=== PATIENT | male | born 1955 | race Caucasian/White ===

== ENCOUNTER → 2018-04-07 | Outpatient (CLI) | payer MEDICARE, BC ==
[~2018-04-07] MED LIST: ALPRAZOLAM PO; ANTIFUNGAL CREA TP; ASPIRIN EC81 M1; BACTRIM DS TAB1 EACH; BACTRIM DS TAB1 EACH PO; CARBAMAZEPINE200 M5 PO; CIPROFLOXACIN250 M2 PO; CRANBERRY400 MG PO; CYMBALTA30 MG PO; DARVOCET-N 1001 EACH PO; FISH OIL 1,0001 EAC5; FLAGYL500 MG PO; GEODON80 MG PO; HALCION0.25 MG PO; HYDROCODON-ACE1 EACH; IRON325; LAMICTAL XR200 MG PO; MACROBID 100 M100 M1; MELATONIN3 MG PO; METHENAMINE1 GM PO; MOBIC15 MG PO; MULTIVITAMINS1 EAC7 PO; NORCO 5-325 TA1 EACH PO; NORVASC 5 MG TAB5 MG PO; OXYBUTYNIN 5 MG5 M1 PO; PEPCID AC20 M1; PERCOCET 5-3251 EACH PO; PRILOSEC 10MG C10 M1 PO; PRILOSEC 10MG C10 MG PO; PRINIVIL10 MG; SEROQUEL XR 30300 M1 PO; TEGRETOL XR200 MG PO; XANAX 0.5 MG0.5 M1 PO; ZANAFLEX; [UNRECOGNIZED DRUG - OTHER]; [UNRECOGNIZED DRUG - OTHER] PO
== END ==
LOC: M.ULTRA 11:30
DX: N21.0 Calculus in bladder (principal); N31.9 Neuromuscular dysfunction of bladder, unspecified; I10 Essential (primary) hypertension

== ENCOUNTER 2019-01-29 22:02 | Emergency (ER) | payer MEDICARE, BC ==
[~2019-01-29] VITALS: Ht 167.6 cm; Wt 77.1 kg
[2019-01-29 22:26] LABS: ABSOLUTE EOSINOPHILS 0.1 thou/uL (0.0-0.7); ABSOLUTE LYMPHOCYTES 1.3 thou/uL (0.8-5.3); ABSOLUTE MONOCYTES 0.5 thou/uL (0.0-1.2); ABSOLUTE NEUTROPHILS 7.3 thou/uL (1.6-8.1); BASOPHILS 0.4 %; EOSINOPHILS 0.9 %; HEMATOCRIT 39.7 % (42.0-52.0); HEMOGLOBIN 13.7 gm/dL (14.0-18.0); LYMPHOCYTES 13.7 %; MCH 30.5 pg (26.0-34.0); MCHC 34.4 g/dL (28.0-37.0); MCV 88.6 fL (80.0-100.0); MONOCYTES 5.7 %; MPV 6.5 fl. (7.2-11.1); NUCLEATED RBCS 0 /100WBC; PLATELET COUNT* 255 thou/uL (150-400); POLYS 79.3 %; RBC 4.48 mil/uL (4.50-6.00); RDW-CV 13.5 % (10.5-14.5); WBC 9.2 thou/uL (4.0-11.0)
[2019-01-29 22:34] LABS: ANION GAP 8 mmol/L (7-16); BUN 14 mg/dL (7-18); CALCIUM 9.2 mg/dL (8.5-10.1); CHLORIDE 89 mmol/L (98-107); CO2 27 mmol/L (21-32); CREATININE 0.6 mg/dL (0.6-1.3); GLUCOSE 112 mg/dL (70-99); POTASSIUM 3.5 mmol/L (3.5-5.1); SODIUM 124 mmol/L (136-145)
[2019-01-29 22:39] LABS: INR 1.1; PROTIME 11.1 Seconds (9.20-11.50)
[2019-01-29 22:45] LABS: ALBUMIN 4.1 g/dL (3.4-5.0); ALKALINE PHOSPHATASE 118 U/L (46-116); LIPASE 47 U/L (73-393); NT-PRO BRAIN NAT PEPTIDE 78 pg/mL (<300); SGOT 22 U/L (15-37); SGPT 34 U/L (30-65); TOTAL BILIRUBIN 0.5 mg/dL (<0.1-1.0); TOTAL PROTEIN 7.9 g/dL (6.4-8.2); TROPONIN-I LEVEL <0.06 ng/mL (<0.06)
[2019-01-30 01:18] LABS: URINE BILIRUBIN NEGATIVE (Negative); URINE BLOOD NEGATIVE (Negative); URINE CLARITY CLEAR; URINE COLOR STRAW; URINE GLUCOSE-RANDOM NEGATIVE (Negative); URINE KETONES NEGATIVE (Negative); URINE LEUKOCYTES-REFLEX NEGATIVE (Negative); URINE NITRITE-REFLEX NEGATIVE (Negative); URINE PROTEIN NEGATIVE (Negative); URINE SPECIFIC GRAVITY <= 1.005 (1.005-1.030); URINE UROBILINOGEN 0.2 E.U./dl (0.2-1.0)
[2019-01-30] MEDS ORDERED: COMPAZINE10 MG PO (01:39)
[2019-01-30] MEDS ORDERED: CARAFATE 1 GM TA1 GM PO (01:39)
[2019-01-30 01:51] VITALS: BP 149/89
--- NOTE | 2019-02-01 13:25 | EKG ---
[place] [address] ELECTROCARDIOGRAM REPORT Name: DARIAN MORA Room: [facility]#: [id number] Admission: 01/29/19 Attend Phys: Discharge: 01/30/19 Date of : 59 Report #: [id number] THIS REPORT FOR: //name// [facility] [place] ED Test Date: 2019-01-29 Test Time: 22:15:43 Pat Name: DARIAN MORA Department: Room: Gender: M Rn Discharge: : 1955 Requested By: Samira Ward Order Number: [id number] MD: Phill Burgess Measurements Intervals Nancy Rate: 63 P: 36 OR: 229 QRS: 61 QRSD: 103 T: 49 QT: 412 QTc: 422 Interpretive Statements Sinus rhythm Prolonged OR interval Abnormal R-wave progression, early transition Compared to ECG 01/10/2016 18:02:54 First degree AV block now present Electronically Signed On 02-01-2019 13:25:35 CDT by Phill Burgess [email or web address] <ELECTRONICALLY SIGNED> By: Phill Burgess MD, [facility] 02/01/19 1325 2215 14 Phill Burgess MD, [facility] /EPI
== END 2019-01-30 01:52 | disposition home or self-care (01) ==
LOC: M.ERS 22:02
PROVIDERS: Emergency Medicine
DX: R11.2 Nausea with vomiting, unspecified (principal); F31.9 Bipolar disorder, unspecified; I10 Essential (primary) hypertension

== ENCOUNTER → 2019-03-24 | Outpatient (CLI) | payer OTHER ==
[~2019-03-24] MED LIST changes: +AMBIEN 5 MG TABL5 M1 PO; +CARAFATE 1 GM TA1 GM PO; +COMPAZINE10 MG PO; +ZANTAC 150MG T150 MG PO
== END ==
LOC: M.CT 12:53
DX: Z13.6 Encounter for screening for cardiovascular disorders (principal); I25.10 Atherosclerotic heart disease of native coronary artery without angina pectoris

== ENCOUNTER → 2019-03-24 | Outpatient (CLI) | payer MEDICARE, BC | LOC: M.RAD 12:44 | DX: K21.9 Gastro-esophageal reflux disease without esophagitis (principal); R13.10 Dysphagia, unspecified; R11.0 Nausea ==

== ENCOUNTER 2019-03-25 12:47 | Emergency (ER) | payer MEDICARE, BC ==
[~2019-03-25] VITALS: Ht 167.6 cm; Wt 81.7 kg
[~2019-03-25 12:47] MED LIST changes: -AMBIEN 5 MG TABL5 M1 PO; -ZANTAC 150MG T150 MG PO
[2019-03-25] MEDS ORDERED: ZANTAC 150MG T150 MG PO (13:02)
[2019-03-25] MEDS ORDERED: AMBIEN 5 MG TABL5 M1 PO (13:02)
[2019-03-25 14:36] VITALS: BP 143/77
== END 2019-03-25 14:40 | disposition home or self-care (01) ==
LOC: M.ERS 12:47
DX: M79.642 Pain in left hand (principal); M79.89 Other specified soft tissue disorders; I10 Essential (primary) hypertension; F31.9 Bipolar disorder, unspecified

== ENCOUNTER → 2019-04-02 | Outpatient (CLI) | payer MEDICARE, BC ==
[~2019-04-02] MED LIST changes: +AMBIEN 5 MG TABL5 M1 PO; +ZANTAC 150MG T150 MG PO
--- NOTE | 2019-04-02 16:52 | CARDNUC ---
[place] [address] CARDIAC NUCLEAR IMAGING REPORT Name: DARIAN MORA Room: [facility]#: [id number] Admission: 04/02/19 Attend Phys: Dallas Pope, Discharge: Date of : 59 Date of Service: 04/02/19 1651 Report #: [id number] THIS REPORT FOR: //name// APPROVED REPORT Study performed: 04/02/2019 11:43:04 Exam: Nuclear Stress Test Indication: Chest pain Patient Location: Out-Patient Stress Tech: Roxanna Singh Stress Nurse: Joselin Moon RN Ht: 5 ft 6 in Wt: 181 lbs BSA: 1.92 m2 BMI: 29.21 Medical History Medical History: paraplegic, hypertension Medications: no cardiac meds Allergies: nkda Cardiac Risk Factors: age, hypertension Previous Cardiac Procedures: none Exercise History: Indeterminate Stress Test Details Stress Test: Pharmacologic stress testing performed using 0.4 mg of regadenoson per 5 mL given IV over 10 seconds. HR Resting HR: 63 bpm Max Heart Rate (APMHR): 159 bpm Max HR Achieved: 90 bpm Target HR (85% APMHR): 135 bpm % of APMHR: 56 Recovery HR: 95 bpm BP Resting BP: 166/67 mmHg Max BP: 169/84 mmHg ECG Resting ECG: Sinus Rhythm Stress ECG: Sinus Rhythm ST Change: None Arrhythmia: None Recovery ECG: Sinus Rhythm Recovery ST Change: [place] [address] CARDIAC NUCLEAR IMAGING REPORT Name: MORGANDARIAN VASQUEZ Room: [facility]#: [id number] Admission: 04/02/19 Attend Phys: Dallas Pope, Discharge: Date of : 59 Date of Service: 04/02/19 1651 Report #: [id number] Recovery Arrhythmia: None Clinical Reason for Termination: Completed protocol Exercise duration: 0 min sec Exercise capacity: 1 METs The patient tolerated Lexiscan infusion without significant symptoms. Nurse Comments pt paraplegic Stress ECG Conclusion The baseline 12-lead EKG shows sinus rhythm without significant ST segment abnormality. EKGs obtained during and post Lexiscan infusion show sinus rhythm with no significant ST or T wave changes when compared baseline. There were no stress-induced arrhythmias. NM EXAM: Myocardial Perfusion REST/STRESS Imaging Protocol: Rest Tc-99m/Stress Tc-99m 1 day Resting Data Rest SPECT myocardial perfusion imaging was performed in supine position 30 minutes following the intravenous injection of 11.5 mCi of Tc-99m Sestamibi. Time of rest injection: 10:10 The images were gated to evaluate regional wall motion and calculate left ventricular ejection fraction. Administration Route: IV Administration Site: Right AC Pharmacologic Stress Pharmacologic stress test was performed by injecting Regadenoson 0.4 mg IV push followed by the intravenous injection of 29.5 mCi of Tc-99m Sestamibi. Time of stress injection: 11:45 Administration Route: IV Administration Site: Right AC Heart Rate at time of stress injection: 90 bpm. Gated Stress SPECT was performed 40 minutes after stress injection. The images were gated to evaluate regional wall motion and calculate left ventricular ejection fraction. Study Quality Study: [place] [address] CARDIAC NUCLEAR IMAGING REPORT Name: MORGANDARIAN PEDRO Room: [facility]#: [id number] Admission: 04/02/19 Attend Phys: Dallas Pope, Discharge: Date of : 59 Date of Service: 04/02/19 1651 Report #: [id number] Artifact: No artifact Study Data At rest, the left ventricular ejection fraction was 70%.. Post stress, the left ventricular ejection was 70%.. TID = 1.02. Perfusion Normal left ventricular perfusion. Wall Motion Normal left ventricular wall motion. Nuclear Conclusion ECG Findings: negative for ischemia Clinical Findings: negative for ischemia Nuclear Findings: negative for ischemia Exercise Capacity: not assessed Left Ventricular Function: normal Risk Study: low Myocardial perfusion images show no defect to suggest infarct or ischemia. Left ventricular systolic function appears normal on gated studies. This is a low risk study. <Conclusion> The baseline 12-lead EKG shows sinus rhythm without significant ST segment abnormality. EKGs obtained during and post Lexiscan infusion show sinus rhythm with no significant ST or T wave changes when compared baseline. There were no stress-induced arrhythmias. <ELECTRONICALLY SIGNED> By: Dallas Pope MD, FACC 04/02/191650 50 50 Dallas Pope MD, FACC /INF
== END ==
LOC: M.NUC 03-10 11:11 → M.CRD 09:00 → M.NUC 09:53
DX: R07.9 Chest pain, unspecified (principal); I10 Essential (primary) hypertension; K30 Functional dyspepsia; R68.84 Jaw pain

== ENCOUNTER → 2019-05-03 | Outpatient (CLI) | payer MEDICARE, BC | LOC: M.NUC 04-16 15:53 | DX: K21.9 Gastro-esophageal reflux disease without esophagitis (principal); R13.10 Dysphagia, unspecified; R11.0 Nausea ==

== ENCOUNTER → 2019-06-24 | Outpatient (CLI) | payer MEDICARE, BC ==
[2019-06-24 11:57] LABS: URINE BILIRUBIN NEGATIVE (Negative); URINE BLOOD NEGATIVE (Negative); URINE CLARITY CLEAR; URINE COLOR YELLOW; URINE GLUCOSE-RANDOM NEGATIVE (Negative); URINE KETONES NEGATIVE (Negative); URINE LEUKOCYTES-REFLEX NEGATIVE (Negative); URINE NITRITE-REFLEX NEGATIVE (Negative); URINE PROTEIN NEGATIVE (Negative); URINE UROBILINOGEN 0.2 E.U./dl (0.2-1.0)
[2019-06-24 12:01] LABS: CALCIUM 8.8 mg/dL (8.5-10.1); CREATININE 0.8 mg/dL (0.6-1.3); POTASSIUM 4.1 mmol/L (3.5-5.1)
== END ==
LOC: M.LAB 11:24
PROVIDERS: Internal Medicine Cardiovascular Disease
DX: R82.998 Other abnormal findings in urine (principal)

== ENCOUNTER → 2019-07-08 | Outpatient (CLI) | payer MEDICARE, BC | LOC: M.MRI 16:14 | DX: M25.532 Pain in left wrist (principal) ==

== ENCOUNTER → 2019-07-26 | Outpatient (CLI) | payer MEDICARE, BC | LOC: M.MRI 14:23 | DX: M67.431 Ganglion, right wrist (principal); M65.88 Other synovitis and tenosynovitis, other site ==

== ENCOUNTER → 2020-02-17 | Outpatient (CLI) | payer MEDICARE, BC ==
[2020-02-17 11:20] LABS: ABSOLUTE EOSINOPHILS 0.4 thou/uL (0.0-0.7); ABSOLUTE LYMPHOCYTES 1.8 thou/uL (0.8-5.3); ABSOLUTE MONOCYTES 0.4 thou/uL (0.0-1.2); BASOPHILS 0.5 %; EOSINOPHILS 7.6 %; HEMATOCRIT 37.6 % (42.0-52.0); HEMOGLOBIN 12.9 gm/dL (14.0-18.0); LYMPHOCYTES 32.1 %; MCH 31.4 pg (26.0-34.0); MCHC 34.3 g/dL (28.0-37.0); MCV 91.5 fL (80.0-100.0); MONOCYTES 7.8 %; MPV 7.1 fl. (7.2-11.1); NUCLEATED RBCS 0 /100WBC; PLATELET COUNT* 254 thou/uL (150-400); RBC 4.11 mil/uL (4.50-6.00); RDW-CV 13.2 % (10.5-14.5); WBC 5.7 thou/uL (4.0-11.0)
[2020-02-17 11:31] LABS: ALBUMIN 3.7 g/dL (3.4-5.0); CALCIUM 8.6 mg/dL (8.5-10.1); CREATININE 0.9 mg/dL (0.6-1.3); POTASSIUM 4.2 mmol/L (3.5-5.1); TOTAL BILIRUBIN 0.3 mg/dL (<0.1-1.0); TOTAL PROTEIN 7.4 g/dL (6.4-8.2)
[2020-02-17 12:14] LABS: ESR (SEDRATE) 7 mm/hr (0-20)
== END ==
LOC: M.LAB 10:46 → M.CT 11:30
PROVIDERS: ATTEND Internal Medicine Gastroenterology
DX: K59.09 Other constipation (principal); R10.32 Left lower quadrant pain; K76.89 Other specified diseases of liver; K42.0 Umbilical hernia with obstruction, without gangrene

== ENCOUNTER → 2020-03-08 | Outpatient (CLI) | payer MEDICARE, BC ==
[2020-03-08 12:05] LABS: ALBUMIN 3.8 g/dL (3.4-5.0); ALKALINE PHOSPHATASE 113 U/L (46-116); CHOLESTEROL 140 mg/dL (<200); DIRECT BILIRUBIN 0.1 mg/dL (<0.1-0.3); HDL CHOLESTEROL 46 mg/dL (>40); LDL CHOLESTEROL 80 mg/dL (<100); SGOT 20 U/L (15-37); SGPT 35 U/L (30-65); TOTAL BILIRUBIN 0.4 mg/dL (<0.1-1.0); TOTAL PROTEIN 7.1 g/dL (6.4-8.2); TRIGLYCERIDE 73 mg/dL (<150); VLDL 15 mg/dL (<40)
[2020-03-08 12:06] LABS: SERUM ASSESSMENT Clear
== END ==
LOC: M.LAB 11:34
PROVIDERS: ATTEND Internal Medicine Cardiovascular Disease
DX: I25.10 Atherosclerotic heart disease of native coronary artery without angina pectoris (principal); E78.00 Pure hypercholesterolemia, unspecified

== ENCOUNTER → 2020-04-18 | Outpatient (CLI) | payer MEDICARE, BC | LOC: M.WC 12:47 | PROVIDERS: ATTEND Emergency Medicine Undersea and Hyperbaric Medicine | DX: L03.311 Cellulitis of abdominal wall (principal); L01.00 Impetigo, unspecified; G82.21 Paraplegia, complete; I10 Essential (primary) hypertension; I25.10 Atherosclerotic heart disease of native coronary artery without angina pectoris; I87.2 Venous insufficiency (chronic) (peripheral); M19.90 Unspecified osteoarthritis, unspecified site; F31.9 Bipolar disorder, unspecified; F41.9 Anxiety disorder, unspecified; Z79.82 Long term (current) use of aspirin ==

== ENCOUNTER → 2020-04-21 | Outpatient (CLI) | payer MEDICARE, BC | LOC: M.WC 03:46 | PROVIDERS: ATTEND Emergency Medicine Undersea and Hyperbaric Medicine | DX: L03.311 Cellulitis of abdominal wall (principal); L01.00 Impetigo, unspecified; I87.2 Venous insufficiency (chronic) (peripheral); G82.21 Paraplegia, complete; M19.90 Unspecified osteoarthritis, unspecified site; I10 Essential (primary) hypertension; I25.10 Atherosclerotic heart disease of native coronary artery without angina pectoris; F31.89 Other bipolar disorder; F41.9 Anxiety disorder, unspecified; Z79.82 Long term (current) use of aspirin ==

== ENCOUNTER → 2020-04-25 | Outpatient (CLI) | payer MEDICARE, BC | LOC: M.WC 04:01 | PROVIDERS: ATTEND Emergency Medicine Undersea and Hyperbaric Medicine | DX: L03.311 Cellulitis of abdominal wall (principal); L01.00 Impetigo, unspecified; G82.21 Paraplegia, complete; I87.2 Venous insufficiency (chronic) (peripheral); I25.10 Atherosclerotic heart disease of native coronary artery without angina pectoris; I10 Essential (primary) hypertension; M19.90 Unspecified osteoarthritis, unspecified site; F31.9 Bipolar disorder, unspecified; F41.9 Anxiety disorder, unspecified ==

== ENCOUNTER → 2020-05-02 | Outpatient (CLI) | payer MEDICARE, BC | LOC: M.WC 04:11 | PROVIDERS: ATTEND Emergency Medicine Undersea and Hyperbaric Medicine | DX: L03.311 Cellulitis of abdominal wall (principal); L01.00 Impetigo, unspecified; G82.21 Paraplegia, complete; I10 Essential (primary) hypertension; I87.2 Venous insufficiency (chronic) (peripheral); I25.10 Atherosclerotic heart disease of native coronary artery without angina pectoris; M19.90 Unspecified osteoarthritis, unspecified site; F41.9 Anxiety disorder, unspecified; F31.9 Bipolar disorder, unspecified ==

== ENCOUNTER → 2020-05-09 | Outpatient (CLI) | payer MEDICARE, BC | LOC: M.WC 04:17 | PROVIDERS: ATTEND Family Medicine | DX: T21.22XD Burn of second degree of abdominal wall, subsequent encounter (principal); T31.0 Burns involving less than 10% of body surface; L03.311 Cellulitis of abdominal wall; L01.00 Impetigo, unspecified; G82.21 Paraplegia, complete; I10 Essential (primary) hypertension; I25.10 Atherosclerotic heart disease of native coronary artery without angina pectoris; I87.2 Venous insufficiency (chronic) (peripheral); M19.90 Unspecified osteoarthritis, unspecified site; F31.9 Bipolar disorder, unspecified; F41.9 Anxiety disorder, unspecified; X08.8XXD Exposure to other specified smoke, fire and flames, subsequent encounter ==

== ENCOUNTER → 2020-05-30 | Outpatient (CLI) | payer MEDICARE, BC | LOC: M.WC 05:39 | PROVIDERS: ATTEND Emergency Medicine Undersea and Hyperbaric Medicine | DX: L03.311 Cellulitis of abdominal wall (principal); T21.22XD Burn of second degree of abdominal wall, subsequent encounter; T31.0 Burns involving less than 10% of body surface; L01.00 Impetigo, unspecified; G82.21 Paraplegia, complete; I10 Essential (primary) hypertension; I25.10 Atherosclerotic heart disease of native coronary artery without angina pectoris; I87.2 Venous insufficiency (chronic) (peripheral); M19.90 Unspecified osteoarthritis, unspecified site; F31.9 Bipolar disorder, unspecified; F41.9 Anxiety disorder, unspecified; X08.8XXD Exposure to other specified smoke, fire and flames, subsequent encounter ==

== ENCOUNTER → 2021-01-26 | Outpatient (CLI) | payer MEDICARE, BC ==
[2021-01-26 12:18] LABS: ALBUMIN 3.9 g/dL (3.4-5.0); ALKALINE PHOSPHATASE 125 U/L (46-116); ANION GAP 4 mmol/L (7-16); BUN 19 mg/dL (7-18); CALCIUM 8.8 mg/dL (8.5-10.1); CHLORIDE 101 mmol/L (98-107); CHOLESTEROL 161 mg/dL (<200); CK-MB MASS 1.5 ng/mL (<0.5-3.6); CO2 29 mmol/L (21-32); CREATININE 0.9 mg/dL (0.6-1.3); DIRECT BILIRUBIN 0.1 mg/dL (<0.1-0.3); GLUCOSE 104 mg/dL (70-99); HDL CHOLESTEROL 46 mg/dL (>40); LDL CHOLESTEROL 103 mg/dL (<100); POTASSIUM 4.8 mmol/L (3.5-5.1); SGOT 15 U/L (15-37); SGPT 22 U/L (30-65); SODIUM 134 mmol/L (136-145); TC:HDL 3.5 Ratio (Not establshd); TOTAL BILIRUBIN 0.1 mg/dL (<0.1-1.0); TOTAL PROTEIN 7.3 g/dL (6.4-8.2); TRIGLYCERIDE 63 mg/dL (<150); VLDL 13 mg/dL (<40)
[2021-01-26 12:21] LABS: SERUM ASSESSMENT Clear
== END ==
LOC: M.LAB 11:31
PROVIDERS: ATTEND Internal Medicine Cardiovascular Disease
DX: I10 Essential (primary) hypertension (principal); I25.10 Atherosclerotic heart disease of native coronary artery without angina pectoris; E78.00 Pure hypercholesterolemia, unspecified

== ENCOUNTER → 2021-06-12 | Outpatient (CLI) | payer MEDICARE, BC | LOC: M.MRI 06-06 15:59 → M.ULTRA 10:40 → M.MRI 11:30 | PROVIDERS: ATTEND Family Medicine | DX: S53.22XA Traumatic rupture of left radial collateral ligament, initial encounter (principal); M19.032 Primary osteoarthritis, left wrist; R22.0 Localized swelling, mass and lump, head; M92.212 Osteochondrosis (juvenile) of carpal lunate [Kienbock], left hand; X58.XXXA Exposure to other specified factors, initial encounter; Y93.89 Activity, other specified; Y92.89 Other specified places as the place of occurrence of the external cause; Y99.8 Other external cause status ==

== ENCOUNTER → 2021-07-31 | Outpatient (CLI) | payer MEDICARE, BC ==
[2021-07-31 13:20] LABS: ALKALINE PHOSPHATASE 113 U/L (46-116); CHOLESTEROL 126 mg/dL (<200); DIRECT BILIRUBIN 0.1 mg/dL (<0.1-0.3); HDL CHOLESTEROL 51 mg/dL (>40); LDL CHOLESTEROL 69 mg/dL (<100); SERUM ASSESSMENT Clear; SGOT 21 U/L (15-37); SGPT 35 U/L (30-65); TC:HDL 2.5 Ratio (Not establshd); TOTAL BILIRUBIN 0.2 mg/dL (<0.1-1.0); TOTAL PROTEIN 7.7 g/dL (6.4-8.2); TRIGLYCERIDE 33 mg/dL (<150); VLDL 7 mg/dL (<40)
== END ==
LOC: M.LAB 12:28
PROVIDERS: ATTEND Internal Medicine Cardiovascular Disease
DX: I25.10 Atherosclerotic heart disease of native coronary artery without angina pectoris (principal); E78.00 Pure hypercholesterolemia, unspecified

== ENCOUNTER 2021-09-20 10:51 | Emergency (ER) | payer MEDICARE, BC ==
[~2021-09-20] VITALS: Ht 167.6 cm; Wt 90.7 kg
--- NOTE | 2021-09-20 11:21 | EKG ---
[place] [address] ELECTROCARDIOGRAM REPORT Name: DARIAN MORA Room: [facility]#: [id number] Admission: 09/20/21 Attend Phys: Discharge: Date of : 59 Date of Service: 09/20/21 1057 Report #: [id number] THIS REPORT FOR: //name// 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: [facility] : 1955 Requested By: Jaspreet Phan Order Number: [id number] MD: Phill Burgess Measurements Intervals Connell Rate: 63 P: 20 ND: 220 QRS: 53 QRSD: 109 T: 52 QT: 404 QTc: 414 Interpretive Statements Sinus rhythm Prolonged ND interval Compared to ECG 01/29/2019 22:15:43 No significant changes Electronically Signed On 09-20-2021 11:20:53 METALLURGIST PROCESS by Phill Burgess [email or web address] <ELECTRONICALLY SIGNED> By: Phill Burgess MD, [facility] 09/20/21 1120 1057 105 Phill Burgess MD, FAC /EPI
[2021-09-20 13:11] LABS: ABSOLUTE EOSINOPHILS 0.2 thou/uL (0.0-0.7); ABSOLUTE MONOCYTES 0.7 thou/uL (0.0-1.2); ABSOLUTE NEUTROPHILS 2.7 thou/uL (1.6-8.1); BASOPHILS 0.4 %; EOSINOPHILS 5.1 %; HEMATOCRIT 38.2 % (42.0-52.0); HEMOGLOBIN 12.7 gm/dL (14.0-18.0); LYMPHOCYTES 21.7 %; MCH 30.1 pg (26.0-34.0); MCHC 33.2 g/dL (28.0-37.0); MCV 90.6 fL (80.0-100.0); MONOCYTES 15.4 %; MPV 6.9 fl. (7.2-11.1); NUCLEATED RBCS 0 /100WBC; PLATELET COUNT* 244 thou/uL (150-400); POLYS 57.4 %; RBC 4.22 mil/uL (4.50-6.00); RDW-CV 13.1 % (10.5-14.5); WBC 4.8 thou/uL (4.0-11.0)
[2021-09-20 13:35] LABS: ALBUMIN 4.3 g/dL (3.4-5.0); CALCIUM 9.2 mg/dL (8.5-10.1); CREATININE 0.8 mg/dL (0.6-1.3); POTASSIUM 4.1 mmol/L (3.5-5.1); TOTAL BILIRUBIN 0.4 mg/dL (<0.1-1.0); TOTAL PROTEIN 7.8 g/dL (6.4-8.2)
[2021-09-20 16:07] VITALS: BP 183/97
== END 2021-09-20 16:09 | disposition home or self-care (01) ==
LOC: M.ERS 10:51
PROVIDERS: Emergency Medicine
DX: U07.1 COVID-19 (principal); R07.89 Other chest pain; E87.1 Hypo-osmolality and hyponatremia; F31.9 Bipolar disorder, unspecified; I10 Essential (primary) hypertension; Z98.890 Other specified postprocedural states; Z79.891 Long term (current) use of opiate analgesic; Z79.899 Other long term (current) drug therapy